=== PATIENT | female | born 1960 | race Caucasian/White ===

== ENCOUNTER → 2016-10-04 | Outpatient (CLI) | payer OTHER ==
[~2016-10-04] MED LIST: GADOBUTROL 10 ML VIAL IVP ONE; IOPAMIDOL (ISOVUE 370) 100 ML BTL IV ONE; LIDOCAINE 1% 30 ML SDV ONE; NA BICARBONATE 50 MEQ/50 ML VIAL ONE; SODIUM BICARBONATE 10 MEQ/10 ML SYR IVP ONE
== END ==
LOC: FIMAGING 12:56
PROVIDERS: ATTEND Physical Medicine & Rehabilitation
PROC: 3E0U3KZ Introduction of Other Diagnostic Substance into Joints, Percutaneous Approach (ICD-10-PCS; principal; 2016-10-04)
DX: M75.111 Incomplete rotator cuff tear or rupture of right shoulder, not specified as traumatic (principal)
CPT/HCPCS: A9585; Q9967

== ENCOUNTER → 2017-04-16 | Outpatient (CLI) | payer OTHER | LOC: FIMAGING 14:51 | PROVIDERS: ATTEND Obstetrics & Gynecology Gynecology | DX: Z12.31 Encounter for screening mammogram for malignant neoplasm of breast (principal) | CPT/HCPCS: G0202 ==

== ENCOUNTER → 2018-01-29 | Outpatient (CLI) | payer OTHER ==
--- NOTE | 2018-01-30 15:53 | CPEEG ---
24-HOUR AMBULATORY EEG. DATES OF STUDY: This 24-hour ambulatory EEG recording was performed from January 29 through 2017. INTERPRETATION: This 24-hour ambulatory EEG recording is normal. There were no potentially epilepto genic abnormalities present in the awake or sleep recordings. The patient provided diary did not rep ort any spells or symptoms. REPORT: This 24-hour ambulatory EEG recording contains 9-10 Hz alpha to the posterior head regions. There was no abnormal activation at rest. The patient became drowsy and fell into sustained sleep d uring the study. There was no abnormal activation during drowsiness, sleep, or during times of arous al. The patient provided a diary, did not report any spells or symptoms. Only national account representative samples of wakefulness, sleep, and patient provided symptoms (if any) were review ed with this study. /[id number]/MODL
== END ==
LOC: FCPNEURO 14:36
PROVIDERS: ATTEND Psychiatry & Neurology Neurology
DX: R55 Syncope and collapse (principal)

== ENCOUNTER → 2018-02-03 | Outpatient (CLI) | payer OTHER ==
[~2018-02-03] MED LIST changes: -IOPAMIDOL (ISOVUE 370) 100 ML BTL IV ONE; -LIDOCAINE 1% 30 ML SDV ONE; -NA BICARBONATE 50 MEQ/50 ML VIAL ONE; -SODIUM BICARBONATE 10 MEQ/10 ML SYR IVP ONE
== END ==
LOC: FIMAGING 15:21
PROVIDERS: ATTEND Psychiatry & Neurology Neurology
DX: R55 Syncope and collapse (principal)
CPT/HCPCS: A9585

== ENCOUNTER 2018-04-06 10:43 | Emergency (ER) | payer OTHER ==
--- NOTE | 2018-04-06 11:58 | EDPHY ---
H & P Time Seen by Provider: 04/06/18 11:25 HPI/ROS: CLINICAL IMPRESSION: Left rib contusion ASSESSMENT/PLAN: 57-year-old female presents to the emergency department with 3 days of left anterior rib pain after she pushed a tube of caulking into her body after trying to get caulking out. Vital signs stable, no hypoxia or respiratory distress. No chest wall contusion or crepitus. Chest x-ray read and interpreted by Radiology with no evidence of underlying rib fracture or pneumothorax. Patient was given an incentive spirometer. A small amount of pain medication prescribed. Encouraged PCP follow-up, warning signs return to ED sooner outlined in person and discharge. DIFFERENTIAL DX: Differential diagnosis includes but not limited to rib contusion, acute rib fracture, pneumothorax. ED COURSE: 1650: I called patient at [phone] report her final radiology report as negative. CHIEF COMPLAINT: Rib pain HPI: 57-year-old female presents to the emergency department with left anterior rib pain after trying to squeeze speckling out of a tube yesterday and felt a crack in her ribs. No reported shortness of breath, chest pain but pain is worse with movement and palpation. No abdominal pain, no vomiting. No history of underlying pulmonary disease, asthma, COPD. She is a nonsmoker. PMH: None reported Pertinent Past Surgical History: Noncontributory Family History: Noncontributory Social History: Nonsmoker, no underlying cardiopulmonary disease ROS: A full 10 point review of systems was negative except for those mentioned in HPI. PHYSICAL EXAM: General Appearance: Alert, oriented, appropriate, cooperative, NAD, well hydrated, non-toxic appearing, VSS, no hypoxia. Respiratory: There are no retractions, lungs are clear to auscultation, reproducible left anterior rib tenderness just beneath the left breast. No crepitus, contusion or deformity.. Cardiac: Regular rate and rhythm, no murmurs or gallops. Gastrointestinal: Abdomen is soft, nontender, bowel sounds normal, no masses/ hernia, no rigidity, guarding or focal peritoneal findings. Skin: Warm, dry, no rashes, no nodules on palpation. MDM: Patient was seen independently by established practice protocols. Secondary supervising physician at time of evaluation was Dr. Hernandez. Diagnosis: Left anterior rib contusion. New, requires workup Summary: See Assessment and Plan for summary of ED visit Clinical lab tests: Not obtained. Independent visualization of images, tracing, or specimens: Yes. Risk of comlications, morbidity, mortality: Presenting problem low Diagnostic procedures low Management Options low Patient Progress: Stable. Smoking Status: Never smoked Constitutional: Initial Vital Signs Temperature (C) 36.6 C 04/06/18 10:52 Heart Rate 68 04/06/18 10:52 Respiratory Rate 16 04/06/18 10:52 Blood Pressure 102/68 04/06/18 10:52 O2 Sat (%) 93 04/06/18 10:52 O2 Delivery Mode Room Air Allergies/Adverse Reactions: No Known Allergies Allergy (Unverified 04/06/18 10:51) Home Medications: Medication Instructions Recorded clonazePAM [Klonopin (*)] 0.5 mg PO HS 02/20/14 celeCOXIB [CeleBREX] 100 mg PO PRN PRN #10 cap 04/06/18 oxyCODONE/APAP 5/325 [Percocet 1 - 2 tab PO Q4-6PRN PRN #10 tab 04/06/18 5/325] MDM/Departure - MDM Imaging Results: Imaging Impressions Ribs w/Chest X-Ray 04/06/18 11:28 Impression: Negative. Imaging: I viewed and interpreted images myself - Depart Disposition: Home, Routine, Self-Care Clinical Impression: Contusion of rib on left side Qualifiers: Encounter type: initial encounter Qualified Code(s): S20.212A - Contusion of left front wall of thorax, initial encounter Condition: Good Instructions: Rib Contusion (ED) Additional Instructions: DISCHARGE INSTRUCTIONS FROM YOUR DOCTOR Thank you for visiting our emergency department today. Please keep in mind that discharge from the emergency department does not mean that there is nothing wrong - it simply means that we have not identified an emergency condition that requires further evaluation or treatment in the hospital. You should always plan to follow up with primary care for re-evaluation of your condition in the next 2-3 days. If you have been referred to a specialist, please call as soon as possible (today or tomorrow) to schedule your follow up appointment at the appropriate time. The preliminary x-rays showed no evidence of acute rib fracture or pneumothorax. We gave you prescription for pain medication to use if needed. Incentive spirometer was provided and we showed you how to use this. Please follow-up with the primary care doctor this week. Return to the emergency department sooner for worsening pain, shortness of breath, cough, fever, or any other concern. People present with illnesses and injuries in different ways, and it is always possible that we have missed something. You may always return for re-evaluation if symptoms worsen or if they are not improving or if you develop new/different symptoms. Again, thank you for choosing our emergency department. We hope that you feel better. Prescriptions: celeCOXIB [CeleBREX] 100 mg PO PRN PRN #10 cap PRN Reason: Pain, Breakthrough oxyCODONE/APAP 5/325 [Percocet 5/325] 1 - 2 tab PO Q4-6PRN PRN #10 tab PRN Reason: Pain, Breakthrough Referrals: BLAIRE PEREZ [Primary Care Provider] - As per Instructions
[2018-04-06 13:08] VITALS: BP 103/68
== END 2018-04-06 13:06 | disposition home or self-care (01) ==
DX: S20.212A Contusion of left front wall of thorax, initial encounter (principal); X58.XXXA Exposure to other specified factors, initial encounter; Y92.9 Unspecified place or not applicable; Y93.9 Activity, unspecified